=== PATIENT | female | born 1990 | race Two or more races ===

== ENCOUNTER 2019-05-24 09:27 | Emergency (ER) | payer OTHER ==
[~2019-05-24] VITALS: Ht 157.5 cm; Wt 112.5 kg
[2019-05-24 10:13] LABS: Urine Bacteria NONE SEEN /hpf (None Seen); Urine Blood 2+ /uL (Negative); Urine Specific Gravity 1.024 (1.001-1.035); Urine WBC 11 /hpf (0 - 5)
[2019-05-24 10:20] LABS: Basophils # (auto) 0 uL; Basophils % (auto) 0.3 % (0.0-2.0); Eosinophils # (auto) 0.1 uL; Hematocrit 40.2 % (36.0-46.0); Hemoglobin 13.3 g/dL (12.2-16.2); Lymphocytes % (auto) 14.3 % (10.0-50.0); Mean Corpuscular Hemoglobin 28.6 pg (28.0-32.0); Mean Corpuscular Hgb Conc. 33.1 g/dL (32.0-36.0); Mean Corpuscular Volume 86.6 fL (80.0-100.0); Monocytes # (auto) 0.9 uL; Monocytes % (auto) 6.3 % (0.0-12.0); Neutrophils # (auto) 10.8 uL; Neutrophils % (auto) 78.1 % (37.0-80.0); Platelet Count (auto) 345 10^3/uL (140-450); Red Blood Cells 4.64 10^6/uL (4.0-5.20); Red Cell Distribution Width 13.6 % (11.8-14.3); White Blood Cell 13.8 10^3/uL (4.4-10.8)
[2019-05-24 10:33] LABS: Albumin 3.4 g/dL (3.4-5.0); Calcium 8.6 mg/dL (8.5-10.1); Potassium 3.8 mmol/L (3.5-5.1)
[2019-05-24 10:36] LABS: BUN/Creatinine Ratio 9.9
[2019-05-24 10:38] LABS: Bilirubin, Total 0.3 mg/dL (0.2-1.0); Total Protein 8.1 g/dL (6.4-8.2)
[2019-05-24 11:45] VITALS: BP 122/67
[2019-05-24] MEDS ORDERED: ACETAMINOPHEN 500 MG TAB PO ONE (13:15)
[2019-05-25] MEDS ORDERED: PREN-96 PO (17:42)
== END 2019-05-24 13:12 | disposition home or self-care (01) ==
LOC: ER 09:27
DX: O23.41 Unspecified infection of urinary tract in pregnancy, first trimester (principal); Z3A.11 11 weeks gestation of pregnancy
CPT/HCPCS: 36415; 76801; 80053; 81001; 84702; 85025

== ENCOUNTER 2019-05-24 21:13 | Inpatient (IN) | payer OTHER ==
[~2019-05-24] VITALS: Ht 157.5 cm; Wt 115.6 kg
[2019-05-24] MEDS ORDERED: LACTATED RINGER'S 1,000 ML IV SCH ×2 (22:03→22:11)
[2019-05-24] MEDS ORDERED: LACTATED RINGER'S 1,000 ML IV ONE ×2 (22:03→22:11)
[2019-05-24] MEDS ORDERED: ceFAZolin 1GM 2 GM in D5W 5% 100 ML IV ONE ×4 (22:15)
[2019-05-24] MEDS: ceFAZolin 1GM/50ML 50 ML IV SCH ×2 (22:33→23:25)
[2019-05-24] MEDS: ONDANSETRON HCL 4 MG/2 ML VIAL IV PRN (22:34)
[2019-05-24 23:54] LABS: Urine Bacteria NONE SEEN /hpf (None Seen); Urine Blood Negative /uL (Negative); Urine Specific Gravity 1.003 (1.001-1.035); Urine WBC 12 /hpf (0 - 5)
[2019-05-25] MEDS: BUTORPHANOL TARTRATE 2 MG/1 ML VIAL IV PRN ×5 (00:30→20:12)
[2019-05-25] MEDS: ACETAMINOPHEN 325 MG TAB PO PRN ×3 (04:52→18:39)
[2019-05-25] MEDS: ONDANSETRON HCL 4 MG/2 ML VIAL IV PRN ×3 (04:56→20:12)
[2019-05-25] MEDS ORDERED: ceFAZolin 1GM/50ML 50 ML IV SCH ×2 (06:00)
[2019-05-25 06:16] LABS: Basophils # (auto) 0.2 uL; Basophils % (auto) 1.4 % (0.0-2.0); Eosinophils # (auto) 0.1 uL; Eosinophils % (auto) 0.7 % (0.0-7.0); Hematocrit 35.5 % (36.0-46.0); Hemoglobin 12.1 g/dL (12.2-16.2); Lymphocytes % (auto) 14.2 % (10.0-50.0); Mean Corpuscular Volume 85.3 fL (80.0-100.0); Monocytes # (auto) 1.3 uL; Monocytes % (auto) 9.1 % (0.0-12.0); Neutrophils # (auto) 10.4 uL; Neutrophils % (auto) 74.6 % (37.0-80.0); Platelet Count (auto) 282 10^3/uL (140-450); Red Blood Cells 4.16 10^6/uL (4.0-5.20); Red Cell Distribution Width 13.4 % (11.8-14.3)
[2019-05-25 06:30] VITALS: BP 123/74
[2019-05-25] MEDS: ceFAZolin 1GM/50ML 50 ML IV SCH ×3 (07:41→21:58)
--- NOTE | 2019-05-25 07:44 | NUR ---
Dr. Rivera at bedside Updated with patient status, including patient has not passed kidney stone. Patient reports pain 2/10 to right groin. Orders received to cancel GI consult and increase LR to 150 mls/hr. Will continue with POC.
--- NOTE | 2019-05-25 07:50 | NUR ---
Urine strained 600 UO strained for stones, no stones at this time.
[2019-05-25] MEDS: LACTATED RINGER'S 1,000 ML IV SCH ×2 (08:00→18:41)
--- NOTE | 2019-05-25 08:57 | NUR ---
Urine strained 100ML OF LIGHT YELLOW URINE, strained for stones, no stones at this time. Continue with POC.
--- NOTE | 2019-05-25 09:35 | NUR ---
PT TRANSFERRED TO ROOM 8B VIA SLOW, STEADY GAIT, NO S/S OF DISTRESS NOTED AT THIS TIME.
--- NOTE | 2019-05-25 09:39 | NUR ---
PT MEDICATED WITH STADOL 2MG IVP PER ORDERS FOR PAIN TO RLQ RATING 6/10.
--- NOTE | 2019-05-25 12:00 | NUR ---
Urine strained 100ML OF LIGHT YELLOW URINE, strained for stones, no stones at this time. Continue with POC.
--- NOTE | 2019-05-25 12:30 | NUR ---
DR SALAS NOTIFIED AND INFORMED THAT THE L&D UNIT IS FILLING UP, DR BAR STATED TO TRANSFER PT TO [facility] IF NEEDED. ORDERS RECEIVED TO ADMIT PT TO THE UNIT THEN TRANSFER TO [facility] WITH THE SAME ORDERS.
--- NOTE | 2019-05-25 13:00 | NUR ---
PT ADMITTED TO L&D, CONSENT FOR BLOOD TRANSFUSION OBTAINED. PT TO BE TRANSFERRED TO [facility].
--- NOTE | 2019-05-25 14:40 | NUR ---
REPORT CALLED TO GLORIA ARNETT ON [facility], REPORT INCLUDED PT IS A 28 [address] BAR, AT 12 WEEKS GESTATION ADMITTED FOR UTI AND KIDNEY STONE. PT'S CURRENT ORDERS INCLUDE ANCEF 1GM Q 8H, STADOL 2MG IVP Q5H, ZOFRAN 4MG IVP Q4H, FHT VIA DOPPLER QSHIFT, AND REGULAR DIET. SULY ARNETT ALSO INFORMED THAT PT'S URINE IS BEING STRAINED FROM KIDNEY STONES..
--- NOTE | 2019-05-25 15:20 | NUR ---
IV insertion IV access obtained, via clean sterile technique by inserting a 20 gauge catheter at after attempt(s). IV secured properly. No trauma to site. Patient tolerated procedure well.
--- NOTE | 2019-05-25 15:30 | NUR ---
IV removal IV DC'd with sterile technique, catheter fully intact. Pressure dressing applied to site. Patient tolerated procedure well. Discharged with aftercare instructions per MD. NOTE:
--- NOTE | 2019-05-25 15:45 | NUR ---
PT VOIDED 700ML'S, URINE STRAINED, NO STONES NOTED.
[2019-05-25 16:10] VITALS: BP 122/66
--- NOTE | 2019-05-25 16:20 | NUR ---
Opening Note Assumed care of patient, patient is A & O x4, no s/s of distress at this time. Patient received pain medication and anti-nausea medication prior to arrival per MELQUIADES Saleh, her current pain level is tolerable at a 3 on the numeric scale. POC discussed with patient. Patient oriented to room, and hospital visiting hours. Family is at bedside. Bed is in low, locked position, call light in reach. Will continue to monitor Q1h and PRN.
[2019-05-25 17:17] VITALS: BP 122/66
[2019-05-25 17:23] VITALS: BP 122/66
[2019-05-25] MEDS ORDERED: PREN-96 PO (17:42)
--- NOTE | 2019-05-25 19:30 | NUR ---
Opening Shift Note Assumed care of patient, awake and alert. No S/S of distress/SOB or pain. Insructed on POC and to callfor assist PRN, will continue to monitor for changes Q1hr and PRN. Family at bedside. Fall and safety precautions in place. Call light within reach.
[2019-05-25 20:00] VITALS: BP 104/70
--- NOTE | 2019-05-25 20:30 | NUR ---
URINE STRAINING Educated patient on MD's order to strain urine. Patient verbalized understanding and agreement, and returned demonstration. Will continue to monitor
[2019-05-25 22:08] VITALS: BP 104/70
[2019-05-26] VITALS (10 sets, daily range): BP systolic 103–122; BP diastolic 57–79
[2019-05-26] MEDS: LACTATED RINGER'S 1,000 ML IV SCH ×5 (00:30→22:00)
[2019-05-26] MEDS: ONDANSETRON HCL 4 MG/2 ML VIAL IV PRN ×5 (02:20→22:12)
[2019-05-26] MEDS: ACETAMINOPHEN 325 MG TAB PO PRN (02:21)
[2019-05-26] MEDS: ceFAZolin 1GM/50ML 50 ML IV SCH ×3 (05:50→22:13)
--- NOTE | 2019-05-26 07:45 | NUR ---
Opening Note Assumed care of patient. She is A & O x4, patient c/o abdominal pain and nausea. POC discussed with patient. Will medicate per orders. Bed is in low, locked position, call light within reach. Will monitor Q1h and PRN.
[2019-05-26] MEDS: BUTORPHANOL TARTRATE 2 MG/1 ML VIAL IV PRN ×4 (08:24→22:12)
--- NOTE | 2019-05-26 09:20 | NUR ---
Dr. Rivera at bedside Notified Dr. Rivera that patient has only been wanting half of her Stadol dose every four hours, that 2mg is too strong for her. Dr. Rivera said "that is fine." Will medicate as requested.
[2019-05-26 11:03] LABS: Basophils # (auto) 0.1 uL; Basophils % (auto) 0.7 % (0.0-2.0); Eosinophils # (auto) 0.1 uL; Eosinophils % (auto) 0.8 % (0.0-7.0); Hematocrit 32.9 % (36.0-46.0); Lymphocytes # (auto) 1.6 uL; Lymphocytes % (auto) 12.3 % (10.0-50.0); Mean Corpuscular Hemoglobin 29.1 pg (28.0-32.0); Mean Corpuscular Hgb Conc. 33.3 g/dL (32.0-36.0); Mean Corpuscular Volume 87.5 fL (80.0-100.0); Monocytes # (auto) 1.1 uL; Monocytes % (auto) 8.7 % (0.0-12.0); Neutrophils # (auto) 9.9 uL; Neutrophils % (auto) 77.5 % (37.0-80.0); Nucleated Red Blood Cells % 0.1 %; Platelet Count (auto) 272 10^3/uL (140-450); Red Blood Cells 3.76 10^6/uL (4.0-5.20); Red Cell Distribution Width 13.6 % (11.8-14.3); White Blood Cell 12.8 10^3/uL (4.4-10.8)
[2019-05-26 13:33] LABS: Urine Bacteria NONE SEEN /hpf (None Seen); Urine Blood Negative /uL (Negative); Urine WBC 5 /hpf (0 - 5)
--- NOTE | 2019-05-26 19:35 | NUR ---
Opening Shift Note Assumed care of patient, awake and alert x4. Family noted at the bedside. Patient complains of pain to right lower quadrant which radiates to the right lower back (pain scale 6/10), will medicate patient as ordered by MD. Instructed on plan of care and to call for assistance as needed. Bed is locked in lowest position, side rails x 2 are up, and call light is within reach.
--- NOTE | 2019-05-26 20:39 | NUR ---
SPOKE WITH DR. ROMERO RE: STOOL SOFTENER Notified Dr. Romero that per patient her last bowel movement was on 05-24-19 and patient reports that she is feeling distended. Dr. Romero also notified that patient reports that she thinks if she has a bowel movement she will feel a little better. Orders from Dr. Romero received for Colace 100mg PO BID. Order read back and verified. Will carry out order as received.
[2019-05-27] VITALS (7 sets, daily range): BP systolic 105–138; BP diastolic 52–78
[2019-05-27] MEDS: ONDANSETRON HCL 4 MG/2 ML VIAL IV PRN ×5 (03:55→21:02)
[2019-05-27] MEDS: DOCUSATE SOD 100 MG CAP PO SCH ×3 (03:55→21:02)
[2019-05-27] MEDS: ACETAMINOPHEN 325 MG TAB PO PRN ×2 (03:56→09:03)
[2019-05-27] MEDS: LACTATED RINGER'S 1,000 ML IV SCH ×2 (04:13→14:38)
[2019-05-27] MEDS: BUTORPHANOL TARTRATE 2 MG/1 ML VIAL IV PRN (05:48)
[2019-05-27] MEDS: ceFAZolin 1GM/50ML 50 ML IV SCH ×3 (05:49→21:02)
--- NOTE | 2019-05-27 06:50 | NUR ---
URINE STRAINED Urine strained throughout the night. No stones noted in urine.
--- NOTE | 2019-05-27 07:00 | NUR ---
DR. BAR AT THE BEDSIDE Dr. Bar at the bedside discussing plan of care with patient and this RN. Verbal orders received to discontinue Butorphanol and start Tylenol with codeine 1 tablet every four hours as needed for pain. Order read back, repeated, and verified. Will carry out orders as received.
--- NOTE | 2019-05-27 07:40 | NUR ---
Patient went to the bathroom.
--- NOTE | 2019-05-27 09:03 | NUR ---
Patient with facial grimacing noted, stated she's in pain, nauseous. Explained to the patient she has orders for Tylenol w/ Codeine or Tylenol 650 mg for pain. Patient stated she wants Tylenol without Codeine. Zofran IVP given for nausea and Tylenol 650 mg PO given for pain.
--- NOTE | 2019-05-27 09:18 | NUR ---
Patient taken via wheelchair to Radiology for OB Ultrasound. came over.
[2019-05-27] MEDS: ACETAMINOPHEN/CODEINE#3 (300/30mg) TAB PO PRN ×3 (13:05→21:02)
--- NOTE | 2019-05-27 13:05 | NUR ---
Patient stated she's in pain, requested for Tylenol #3 w/ Codeine PO, also stated she's nauseous. Zofran Inj given for nausea, Tylenol w/ Codeine given for pain.
--- NOTE | 2019-05-27 14:45 | NUR ---
Strained the urine. No stones.
--- NOTE | 2019-05-27 15:00 | NUR ---
Bedside commode provided.
--- NOTE | 2019-05-27 17:04 | NUR ---
Patient stated she's in pain, nauseous. Tylenol #3 w/Codeine given for pain, Zofran IVP given for nausea. and two female visitors at bedside.
--- NOTE | 2019-05-27 18:40 | NUR ---
Patient walking on the hallway with .
--- NOTE | 2019-05-27 19:10 | NUR ---
Called L&D regarding order to obtain heart tone daily. Spoke with Charge Nurse Erlinda. Erlinda said an L&D Nurse will come over to check the heart tone.
--- NOTE | 2019-05-27 20:09 | NUR ---
Opening Shift Note Assumed care of patient, awake and alert. No S/S of distress/SOB or pain. Instructed on POC and to call for assist PRN, will continue to monitor for changes Q1hr and PRN.
[2019-05-28] VITALS (11 sets, daily range): BP systolic 112–138; BP diastolic 61–78
[2019-05-28] MEDS: ACETAMINOPHEN/CODEINE#3 (300/30mg) TAB PO PRN ×6 (00:50→21:14)
[2019-05-28] MEDS: ONDANSETRON HCL 4 MG/2 ML VIAL IV PRN ×6 (00:50→21:14)
[2019-05-28] MEDS: LACTATED RINGER'S 1,000 ML IV SCH ×5 (00:51→23:56)
--- NOTE | 2019-05-28 01:31 | NUR ---
heart tones This RN up to patient room to assess heart tones, noted 165 by doppler for 10 seconds. Per pt, FHR is typically between 165 and 180 on doppler and ultrasound.
[2019-05-28] MEDS: ceFAZolin 1GM/50ML 50 ML IV SCH ×3 (05:03→21:14)
[2019-05-28 06:37] LABS: Potassium 3.8 mmol/L (3.5-5.1)
[2019-05-28 06:43] LABS: Albumin 2.7 g/dL (3.4-5.0); BUN/Creatinine Ratio 4.2; Bilirubin, Total 0.6 mg/dL (0.2-1.0); Calcium 8.6 mg/dL (8.5-10.1); Total Protein 6.9 g/dL (6.4-8.2)
--- NOTE | 2019-05-28 07:20 | NUR ---
Report given to Ema Izaguirre, patient is resting no respiratory distress.
--- NOTE | 2019-05-28 08:05 | NUR ---
Patient asked for nausea medication. Zofran Inj not due at this time.
--- NOTE | 2019-05-28 09:18 | NUR ---
L&D MELQUIADES Brown at bedside to assess Heart Tone.
--- NOTE | 2019-05-28 09:24 | NUR ---
L&D MELQUIADES Brown said she could not get Heart Tone.
--- NOTE | 2019-05-28 09:25 | NUR ---
L&D MELQUIADES Brown called MELQUIADES Hunt to reassess the Heart Tone.
[2019-05-28] MEDS: DOCUSATE SOD 100 MG CAP PO SCH ×2 (09:32→21:14)
--- NOTE | 2019-05-28 09:33 | NUR ---
Patient stated she's nauseous, her pain level at 6/10 at this time, requested Tylenol w/Codeine. Zofran IVP given for nausea, Tylenol w/ Codeine given for pain. at bedside.
--- NOTE | 2019-05-28 09:55 | NUR ---
PT has been repositioned and several attempts with doppler to obtain FHT via doppler by Mirna Garcia. Informed RN caring for PT to get an OB limited to scan for FHT.
--- NOTE | 2019-05-28 09:55 | NUR ---
L&D MELQUIADES Hunt said she could not get the Heart Tone as well, may order per protocol OB Sono Ultrasound.
--- NOTE | 2019-05-28 10:05 | NUR ---
Called Ultrasound for OB Sono US.
--- NOTE | 2019-05-28 10:50 | NUR ---
Ultrasound OB resulted.
--- NOTE | 2019-05-28 13:35 | NUR ---
Patient is crying, stated she's in pain, nauseous. Zofran Inj given for nausea, Tylenol w/Codeine given for pain.
--- NOTE | 2019-05-28 17:45 | NUR ---
Patient in bed, crying, stated she's in pain, nauseous. Tylenol #3 w/ Codeine given for pain, Zofran Inj given for nausea. at bedside.
--- NOTE | 2019-05-28 19:29 | NUR ---
191 Heart Tones range 151-154 x 1 minute. Hand Held Doppler used for assessment.
--- NOTE | 2019-05-28 20:02 | NUR ---
Opening Shift Note Assumed care of patient, awake and alert. No S/S of distress/SOB c/o renal pain. Instructed on POC and to call for assist PRN, will continue to monitor for changes Q1hr and PRN.Labor and delivery R.brian Said heart tone of the baby is bet.152-154.Not yet time for the pain med.
[2019-05-29] VITALS (8 sets, daily range): BP systolic 113–125; BP diastolic 60–75
[2019-05-29] MEDS: ONDANSETRON HCL 4 MG/2 ML VIAL IV PRN ×6 (02:07→22:41)
[2019-05-29] MEDS: ACETAMINOPHEN/CODEINE#3 (300/30mg) TAB PO PRN ×6 (02:07→22:46)
--- NOTE | 2019-05-29 04:30 | NUR ---
IV removal IV DC'd with sterile technique, catheter fully intact. Pressure dressing applied to site. Patient tolerated procedure well. NOTE: 3rd day of the i.v.line.
--- NOTE | 2019-05-29 04:30 | NUR ---
IV insertion IV access obtained, via clean sterile technique by inserting 22 gauge catheter at right forearm after attempt by Ema Barnett. IV secured properly. No trauma to site. Patient tolerated well.
[2019-05-29] MEDS: ceFAZolin 1GM/50ML 50 ML IV SCH ×3 (05:31→22:41)
[2019-05-29] MEDS: LACTATED RINGER'S 1,000 ML IV SCH ×3 (06:05→19:01)
--- NOTE | 2019-05-29 07:33 | NUR ---
Report given to Ema Izaguirre, patient is resting no distress.
--- NOTE | 2019-05-29 09:08 | NUR ---
Dr. Rivera came over. made aware patient still complaining of pain to pass kidney stones, and constipated.
--- NOTE | 2019-05-29 09:10 | NUR ---
Dr. Rivera at bedside for follow up OB Gyne Consult. MD ordered Urology Consult, Dulcolax 10 mg PRN Daily for constipation.
[2019-05-29] MEDS ORDERED: BISACODYL 5 MG EC TAB PO PRN (09:15)
[2019-05-29] MEDS: DOCUSATE SOD 100 MG CAP PO SCH ×2 (09:34→22:00)
--- NOTE | 2019-05-29 10:02 | NUR ---
Dulcolax PO given for constipation as ordered.
--- NOTE | 2019-05-29 10:02 | NUR ---
Patient stated her pain level at 6/10 at this time, nauseous, requested Tylenol w/Codeine for pain. Zofran Inj given for nausea, Tylenol w/Codeine given for pain as ordered.
--- NOTE | 2019-05-29 10:15 | NUR ---
Unit Sec. Loera said Dr. Gross called back regarding the Urology Consult but the MD did not say if he will see the patient today.
--- NOTE | 2019-05-29 14:00 | NUR ---
Called Dr. Rivera regarding the final results of Urine Bacterial Culture. ordered repeat Urine Bacterial Culture. Dr. Rivera also ordered to follow up with Urology because patient is in a lot of pain.
--- NOTE | 2019-05-29 14:12 | NUR ---
Called Dr. Gross. Phone on [employer]. Left a message to call back regarding Urology Consult.
--- NOTE | 2019-05-29 14:36 | NUR ---
Urine specimen sent to Laboratory.
--- NOTE | 2019-05-29 15:31 | NUR ---
Dr. Gross came over for Urology Consult. Patient is admitted for Renal Stones, 14 weeks .
--- NOTE | 2019-05-29 15:41 | NUR ---
Dr. Gross at bedside. ordered Ultrasound of the Kidney and Bladder. Dr. Gross ordered to call Dr. Rivera if okay to give Toradol Inj for pain.
--- NOTE | 2019-05-29 15:50 | NUR ---
Called Dr. Rivera that patient was seen by Dr. Gross for Urology Consult, if patient is okay to have Toradol Inj for pain. Dr. Rivera said No. Informed Dr. Gross.
--- NOTE | 2019-05-29 15:55 | NUR ---
Patient stated she had a small bowel movement today. Patient had prune juice brought by family.
--- NOTE | 2019-05-29 15:55 | NUR ---
Called Ultrasound that patient has ordered for Kidney and Bladder US as ordered by Dr. Gross. Jewell said call Ultrasound when patient got a full bladder. Informed the patient to press the call light when she has the urge to urinate, hold her bladder for the Ultrasound.
--- NOTE | 2019-05-29 17:10 | NUR ---
Patient came out of the bathroom, stool smear noted on the toilet bowl. Patient stated she has the urge to have bowel movement. Instructions given again to patient if she has the urge to urinate, hold her bladder and press the call light so I could call ultrasound. Patient verbalized understanding.
--- NOTE | 2019-05-29 17:50 | NUR ---
RN AT PT BEDSIDE ROOM 271B FOR FHT VIA DOPPLER. PT HAS BEEN REPOSITIONED SEVERAL TIMES AND SEVERAL ATTEMPTS MADE WITH DOPPLER TO OBTAIN FHT VIA DOPPLER BY Alise NIEVES. INFORMED NITIN ARNETT TO GET AN OB LIMITED SCAN FOR FHT.
--- NOTE | 2019-05-29 18:00 | NUR ---
L&D MELQUIADES Coffey unable to assess heart tone. Protocol order OB Sono US for viability as per Dr. Rivera.
--- NOTE | 2019-05-29 18:18 | NUR ---
Called Ultrasound. Phone on voicemail. Left a message regarding Stat OB Ultrasound.
[2019-05-30] VITALS (9 sets, daily range): BP systolic 101–121; BP diastolic 56–75
[2019-05-30] MEDS: LACTATED RINGER'S 1,000 ML IV SCH ×4 (02:05→22:05)
[2019-05-30] MEDS: ONDANSETRON HCL 4 MG/2 ML VIAL IV PRN ×2 (05:17→09:26)
[2019-05-30] MEDS: ceFAZolin 1GM/50ML 50 ML IV SCH ×3 (05:18→22:00)
[2019-05-30] MEDS: ACETAMINOPHEN/CODEINE#3 (300/30mg) TAB PO PRN ×3 (05:19→14:12)
--- NOTE | 2019-05-30 09:25 | NUR ---
Patient with facial grimacing noted, stated her pain level at 6/10 at this time, nauseous, requested Tylenol w/Codeine. Zofran Inj given for nausea, Tylenol w/ Codeine given for pain as ordered.
--- NOTE | 2019-05-30 09:30 | NUR ---
Patient refused Colace, stated she had a lot of bowel movement last night.
[2019-05-30] MEDS: DOCUSATE SOD 100 MG CAP PO SCH ×2 (09:32→22:00)
--- NOTE | 2019-05-30 09:44 | NUR ---
FHT THIS RN AT BEDSIDE ROOM 271B FOR FHT VIA DOPPLER. PT REPOSITIONED TO OBTAIN FHT VIA DOPPLER. UNABLE TO OBTAIN FHT AT THIS TIME INFORMED NITIN RN TO GET AN OB LIMITED SCAN FOR FHT. VERBALIZED UNDERSTANDING.
--- NOTE | 2019-05-30 09:45 | NUR ---
Vipul&Rancho Kang at bedside, unable to assess the heart tone. Protocol order for OB Ultrasound as per Dr. Rivera.
--- NOTE | 2019-05-30 14:12 | NUR ---
Patient stated her pain level at 6/10 at this time, requested for Tylenol w/ Codeine. Tylenol w/ Codeine given as ordered.
--- NOTE | 2019-05-30 14:17 | NUR ---
Three female visitors came over. at bedside.
--- NOTE | 2019-05-30 14:24 | NUR ---
Dr. Gross at bedside. explained the Renal US results. informed the patient there will be another Urologist to see her tomorrow. and visitors at bedside.
--- NOTE | 2019-05-30 14:24 | NUR ---
Patient stated to Dr. Gross that regular Tylenol does not relieve her pain. Patient has orders for Tylenol #3 w/ Codeine as per Dr. Rivera.
--- NOTE | 2019-05-30 19:32 | NUR ---
Opening Shift Note Assumed care of patient, awake and alert. at bed side. Patient verbalizes pain described as flank pain, rating it as a 7/10. Patient requests pain med, will give med as ordered. Instructed on POC and to call for assist PRN, will continue to monitor for changes Q1hr and PRN.
--- NOTE | 2019-05-30 20:52 | NUR ---
DR CORTES AT BED SIDE
--- NOTE | 2019-05-30 20:52 | NUR ---
CHARISMA RN AT BED SIDE FOR FHR MONITORING
--- NOTE | 2019-05-30 21:00 | NUR ---
DR. BAR AT PT. BEDSIDE FOR ROUNDS, FHT, VIA HAND HELD DOPPLER FOUND IN LOWER RIGHT PELVIC AREA, ARE AT 152.
[2019-05-30 23:28] LABS: Albumin 2.8 g/dL (3.4-5.0); Calcium 8.4 mg/dL (8.5-10.1); Potassium 3.9 mmol/L (3.5-5.1)
[2019-05-30 23:30] LABS: BUN/Creatinine Ratio 5.2
[2019-05-30 23:33] LABS: Bilirubin, Total 0.3 mg/dL (0.2-1.0); Total Protein 7.1 g/dL (6.4-8.2)
[2019-05-31] VITALS: BP 126/66
[2019-05-31 04:08] VITALS: BP 122/64
[2019-05-31] MEDS: LACTATED RINGER'S 1,000 ML IV SCH ×3 (04:32→18:05)
[2019-05-31] MEDS: ACETAMINOPHEN/CODEINE#3 (300/30mg) TAB PO PRN ×3 (05:35→21:04)
[2019-05-31] MEDS: ceFAZolin 1GM/50ML 50 ML IV SCH ×2 (06:00→14:45)
--- NOTE | 2019-05-31 07:30 | NUR ---
heart tones were not obtained, Nurse Zina RN made aware for US needs to be ordered.
[2019-05-31 08:05] VITALS: BP 108/50
--- NOTE | 2019-05-31 09:09 | NUR ---
Jessica from Ultrasound cancelled the OB US to assess heart tone.
--- NOTE | 2019-05-31 09:10 | NUR ---
Called Ultrasound, phone on voicemail, left a message to call back.
[2019-05-31] MEDS: DOCUSATE SOD 100 MG CAP PO SCH ×2 (10:00→22:00)
--- NOTE | 2019-05-31 10:00 | NUR ---
Called Ultrasound. Spoke with Jessica regarding the OB Ultrasound, the L&D Nurse Nurse unable to obtain Heart Tone so the OB USD was ordered by Dr. Rivera. Jessica said the L&D is using an old machine, that OB US has to be done daily with the same results, and said I have to talk to my Charge Nurse.
--- NOTE | 2019-05-31 10:02 | NUR ---
Charge Nurse Haleigh made aware Jessica cancelled the OB US. L&D Nurse unable to obtain FHTs.
--- NOTE | 2019-05-31 10:05 | NUR ---
Called Dr. Rivera, left a message to call back. Waiting for MD to call back.
--- NOTE | 2019-05-31 10:28 | NUR ---
Patient asleep at this time, no acute distress noted.
--- NOTE | 2019-05-31 11:16 | NUR ---
Patient stated her pain level at 6/10 at this time, refused regular Tylenol. Tylenol #3 w/ Codeine given for pain as ordered.
[2019-05-31 12:00] VITALS: BP 129/78
--- NOTE | 2019-05-31 12:12 | NUR ---
Pharmacist called that Ancef is discontinued as per Pharmacy Protocol because Urine Bacterial Culture (-), no growth.
--- NOTE | 2019-05-31 13:37 | NUR ---
Called Pharmacy again to clarify if Ancef is going to be discontinued. Pharmacist said wait for the doctor to discontinue the Ancef.
[2019-05-31 16:00] VITALS: BP 114/74
--- NOTE | 2019-05-31 17:55 | NUR ---
Dr. Rivera at bedside. MD ordered to discontinue Ancef IV, patient for possible discharge tomorrow.
--- NOTE | 2019-05-31 18:25 | NUR ---
heart tones obtained via Doppler 140's
--- NOTE | 2019-05-31 19:15 | NUR ---
Opening Shift Note Received report from Zina ARNETT. Assumed care of patient, awake and alert. No S/S of distress/SOB, with moderate R quadrant abdominal pain. Instructed on POC and to call for assist PRN, will continue to monitor for changes Q1hr and PRN.
[2019-05-31 21:45] VITALS: BP 138/77
[2019-06-01] VITALS (7 sets, daily range): BP systolic 105–160; BP diastolic 62–88
[2019-06-01] MEDS: LACTATED RINGER'S 1,000 ML IV SCH ×4 (00:46→21:30)
--- NOTE | 2019-06-01 06:51 | NUR ---
Patient's mother called and asked why her daughter still having headache and would like to have an explanation from the doctor. Addendum: 06/01/19 at 0654 by John Boggs RN Wrong entry.
--- NOTE | 2019-06-01 07:20 | NUR ---
Opening Shift Note Report received and assumed care of patient, awake and alert. No c/o pain or discomfort at this time . Instructed on POC and Nursing routines,call light within reach patient reminded instructed to call for assistance,patient verbalized understanding. will continue to monitor for changes Q1hr and PRN.
[2019-06-01] MEDS: DOCUSATE SOD 100 MG CAP PO SCH ×2 (09:43→22:00)
--- NOTE | 2019-06-01 09:55 | NUR ---
heart tones obtained via Doppler 140's
--- NOTE | 2019-06-01 13:30 | NUR ---
PATIENT AMBULATING IN HALLWAY WITH
--- NOTE | 2019-06-01 15:50 | NUR ---
MD VISIT HERE TO SEE AND EXAMINED PATIENT,PLAN OF CARE AND DISCHARGED PLAN IN A.M. DISCUSSED ,PATIENT MADE DR. BAR AWARE OF RASHES UNDER BILATERAL BREAST.RECEIVED ORDER,SEE WRITTEN ORDER.
--- NOTE | 2019-06-01 17:30 | NUR ---
RESTING NO DISTRESS NO DISCOMFORT OR PAIN
[2019-06-01] MEDS ORDERED: VITAMINS A & D (TOPICAL) OINT 5GM TOP PRN (18:00)
--- NOTE | 2019-06-01 19:10 | NUR ---
Opening Shift Note Received report from Alivia ARNETT. Assumed care of patient, awake and alert, family at bedside. No S/S of distress/SOB or pain. Instructed on POC and to call for assist PRN, will continue to monitor for changes Q1hr and PRN.
[2019-06-02] VITALS (8 sets, daily range): BP systolic 107–109; BP diastolic 64–74
[2019-06-02] MEDS: LACTATED RINGER'S 1,000 ML IV SCH ×2 (04:00→11:27)
--- NOTE | 2019-06-02 08:00 | NUR ---
Opening Shift Note Assumed care of patient, awake and alert. No S/S of distress/SOB or pain. Patient is at 14 weeks of . Instructed on POC and to call for assist PRN, will continue to monitor for changes Q1hr and PRN.
--- NOTE | 2019-06-02 09:12 | NUR ---
assessment No post discharge needs identified. Addendum: 06/03/19 at 912 by Mihaela VAUGHN Amended: Links added.
[2019-06-02] MEDS: DOCUSATE SOD 100 MG CAP PO SCH (10:00)
--- NOTE | 2019-06-02 10:30 | NUR ---
L/D RN at BS, heart tones obtained via doppler, fhts =142-148 BPM x 2 minutes.
--- NOTE | 2019-06-02 16:00 | NUR ---
Discharge instructions given as ordered. Encourage to follow up with OB/GYNE Dr. Rivera on 06/07/19 at 2:30pm at the office as instructed. All questions and concerns addressed. Patient verbalized understanding. Medication reconciliation form completed and copy given to patient. IV removed with catheter intact, pressure dressing applied. Patient taken to vehicle via wheelchair with all personal belongings, accompanied by staff and family member. No distress noted at time of departure.
== END 2019-06-02 16:00 | disposition home or self-care (01) | DRG 832 ==
LOC: LDRP 21:13 → OBSVTOIN 21:13 → LDRP 22:22 → INTOOBSV 05-25 12:30 → OBSVTOIN 05-25 12:30 → WEST WING 05-25 16:19 → LDRP 05-25 16:19 → WEST WING 05-28 15:01
PROVIDERS: ADMIT Obstetrics & Gynecology; ATTEND Obstetrics & Gynecology
DX: O26.831 Pregnancy related renal disease, first trimester (principal); O23.41 Unspecified infection of urinary tract in pregnancy, first trimester; N20.0 Calculus of kidney; Z3A.11 11 weeks gestation of pregnancy
CPT/HCPCS: 36415; 76775; 76805; 76815; 80053; 81001; 81002; 85025; 87086; 87210; 96361; 96372; 96374; G0378; J0690; J2405; J7060

== ENCOUNTER 2019-08-28 08:50 | Observation (INO) | payer OTHER ==
[~2019-08-28 08:50] MED LIST: PREN-96 PO
[2019-08-28 09:55] LABS: Urine Bacteria FEW /hpf (None Seen); Urine Blood TRACE /uL (Negative); Urine Mucus FEW (None Seen); Urine Specific Gravity 1.013 (1.001-1.035); Urine WBC 31 /hpf (0 - 5)
[2019-08-28] MEDS ORDERED: LACTATED RINGER'S 2,000 ML IV ONE (10:00)
[2019-08-28] MEDS ORDERED: ceFAZolin 1GM/50ML 50 ML IV ONE (10:00)
== END 2019-08-28 12:40 | disposition home or self-care (01) | DRG 833 ==
LOC: LDRP 08:50
PROVIDERS: ADMIT Obstetrics & Gynecology; ATTEND Obstetrics & Gynecology
DX: O21.2 Late vomiting of pregnancy (principal); O26.892 Other specified pregnancy related conditions, second trimester; E86.0 Dehydration; R42 Dizziness and giddiness; H53.8 Other visual disturbances; Z3A.24 24 weeks gestation of pregnancy
CPT/HCPCS: 59025; 81001; 81002; 94760; 96361; 96365; G0378; J0690

== ENCOUNTER 2019-10-09 12:48 | Observation (INO) | payer OTHER ==
[2019-10-09 13:59] LABS: Urine Bacteria FEW /hpf (None Seen); Urine Blood TRACE /uL (Negative); Urine Specific Gravity 1.013 (1.001-1.035); Urine WBC 26 /hpf (0 - 5)
== END 2019-10-09 13:50 | disposition home or self-care (01) | DRG 833 ==
LOC: LDRP 12:48
PROVIDERS: ADMIT Specialist; ATTEND Specialist
DX: O62.9 Abnormality of forces of labor, unspecified (principal); Z3A.33 33 weeks gestation of pregnancy
CPT/HCPCS: 59025; 81001; 81002; G0378

== ENCOUNTER 2019-11-12 02:36 | Inpatient (IN) | payer OTHER ==
[~2019-11-12] VITALS: Ht 157.5 cm; Wt 111.1 kg
[2019-11-12] MEDS ORDERED: VENL37.572 PO (04:12)
[2019-11-12] MEDS ORDERED: LACT. RINGERS/OXYTOCIN 20UNITS 1,000 ML IV SCH (04:38)
[2019-11-12] MEDS ORDERED: BUTORPHANOL TARTRATE 2 MG/1 ML VIAL IV PRN (04:45)
[2019-11-12] MEDS ORDERED: LIDOCAINE 2%HCL (LOCAL ANESTH.) INJ 20ML MDV ID ONE (04:45)
[2019-11-12] MEDS ORDERED: DERMOPLAST 60ML BOTTLE TOP PRN (04:45)
[2019-11-12] MEDS ORDERED: METHYLERGONOVINE MALEATE 0.2 MG/ML AMP IM PRN (04:45)
[2019-11-12] MEDS ORDERED: CARBOPROST TROMETHAMINE 250 MCG/1ML VIAL IM PRN (04:45)
[2019-11-12] MEDS ORDERED: PHISODERM TOP SOLN 240ML BTL TOP PRN (04:45)
[2019-11-12] MEDS ORDERED: WITCH HAZEL-GLYCERIN PAD TOP PRN (04:45)
[2019-11-12 05:21] LABS: Basophils # (auto) 0.1 10 ^3/uL (0-0.2); Eosinophils % (auto) 0.3 % (0.0-7.0); Hemoglobin 12.2 g/dL (12.2-16.2); Mean Corpuscular Hemoglobin 25.2 pg (28.0-32.0); Neutrophils # (auto) 11.2 10 ^3/uL (1.6-8.6); Nucleated Red Blood Cells % 0.1 %; Red Blood Cells 4.83 10^6/uL (4.0-5.20); White Blood Cell 14.7 10^3/uL (4.4-10.8)
[2019-11-12 05:23] LABS: Basophils % (auto) 0.6 % (0.0-2.0); Eosinophils # (auto) 0 10 ^3/uL (0-0.8); Hematocrit 37.3 % (36.0-46.0); Lymphocytes # (auto) 2.4 10 ^3/uL (0.4-5.4); Lymphocytes % (auto) 16.1 % (10.0-50.0); Mean Corpuscular Hgb Conc. 32.7 g/dL (32.0-36.0); Mean Corpuscular Volume 77.2 fL (80.0-100.0); Monocytes # (auto) 1.1 10 ^3/uL (0-1.3); Monocytes % (auto) 7.2 % (0.0-12.0); Neutrophils % (auto) 75.8 % (37.0-80.0); Platelet Count (auto) 329 10^3/uL (140-450); Red Cell Distribution Width 16.1 % (11.8-14.3)
[2019-11-12 05:27] LABS: Urine Bacteria FEW /hpf (None Seen); Urine Blood 1+ /uL (Negative); Urine Specific Gravity 1.011 (1.001-1.035); Urine WBC 28 /hpf (0 - 5)
[2019-11-12 05:36] LABS: INR 0.94 (0.9-1.15); Partial Thromboplastin Time 27.3 sec (23.64-32.05)
[2019-11-12 05:41] LABS: Albumin 2.3 g/dL (3.4-5.0); Calcium 8.3 mg/dL (8.5-10.1); Potassium 4.2 mmol/L (3.5-5.1)
[2019-11-12 05:46] LABS: BUN/Creatinine Ratio 9.2; Bilirubin, Total 0.2 mg/dL (0.2-1.0); Total Protein 7.2 g/dL (6.4-8.2)
[2019-11-12] MEDS ORDERED: LACTATED RINGER'S 1,000 ML IV ONE (08:07)
[2019-11-12] MEDS ORDERED: fentaNYL CITRATE 100 MCG/2 ML VL IV ONE (08:15)
[2019-11-12] MEDS ORDERED: NALOXONE HCL 0.4 MG/ML VIAL IV ONE (08:15)
[2019-11-12] MEDS ORDERED: ePHEDrine SULFATE 50 MG/ML AMP IV ONE (08:15)
[2019-11-12] MEDS ORDERED: fentaNYL 200mCg/100ml W ROPIVA 100 ML EPI SCH (08:15)
[2019-11-12] MEDS ORDERED: LIDOCAINE HCL 2 %PF INJ 10ML AMP IJ ONE (08:15)
[2019-11-12] MEDS: miSOPROStol 50 MCG per PRE-CUT 1/2 TAB PO PRN ×2 (08:44→15:20)
[2019-11-12] MEDS: LACTATED RINGER'S 1,000 ML IV SCH (11:23)
[2019-11-12] MEDS ORDERED: LORazepam 2MG/ML-1ML VIAL IV ONE (12:15)
[2019-11-12] MEDS: ceFAZolin 1GM/50ML 50 ML IV SCH (18:47)
[2019-11-12] MEDS: fentaNYL 200mCg/100ml W ROPIVA 100 ML EPI SCH (21:15)
[2019-11-12] MEDS ORDERED: D5W/LACTATED RINGERS 1,000 ML IV SCH (23:00)
[2019-11-13] VITALS (10 sets, daily range): BP systolic 117–142; BP diastolic 63–90
[2019-11-13] MEDS: LACTATED RINGER'S 1,000 ML IV SCH (01:20)
[2019-11-13] MEDS: ceFAZolin 1GM/50ML 50 ML IV SCH ×2 (02:30→18:20)
[2019-11-13] MEDS: fentaNYL 200mCg/100ml W ROPIVA 100 ML EPI SCH (03:58)
[2019-11-13 07:06] LABS: RPR Non Reactive (Non Reactive)
[2019-11-13] MEDS ORDERED: SUCCINYLCHOLINE CHLORIDE 20 MG/ML 10ML VIAL IV ONE (09:40)
[2019-11-13] MEDS ORDERED: ROCURONIUM 10MG/ML 10ML VIAL IV ONE (09:42)
[2019-11-13] MEDS ORDERED: fentaNYL CITRATE 100 MCG/2 ML VL ONE (09:42)
[2019-11-13] MEDS ORDERED: MIDAZOLAM HCL 1MG/1ML-2 ML VIAL ONE (10:34)
[2019-11-13] MEDS ORDERED: GLYCOPYRROLATE 0.2 MG/ML 1ML VIAL ONE (10:48)
[2019-11-13] MEDS ORDERED: oxyTOCIN 10 UNIT/ML 10ML VIAL ONE (10:48)
[2019-11-13] MEDS ORDERED: NEOSTIGMINE 1 MG/ML INJ (10mg/10ML VIAL) ONE (10:48)
[2019-11-13] MEDS ORDERED: METOCLOPRAMIDE HCL 5MG/ml INJ 2ml VIAL ONE (10:50)
[2019-11-13] MEDS ORDERED: PROPOFOL 10 MG/ML 20 ML IV ONE (10:50)
[2019-11-13] MEDS ORDERED: ONDANSETRON HCL 4 MG/2 ML VIAL ONE (10:50)
[2019-11-13] MEDS ORDERED: LACTATED RINGER'S 1,000 ML IV SCH (10:56)
[2019-11-13] MEDS ORDERED: ceFAZolin 1GM/50ML 50 ML IV SCH (11:00)
[2019-11-13] MEDS ORDERED: ACETAMINOPHEN IV 1000 MG/100ML (10MG/ML) IV PRN ×2 (11:00→22:00)
--- NOTE | 2019-11-13 11:25 | NUR ---
Report received from PACU Report received from Roby, SEXUAL ASSAULT COUNSELOR including pt A/Ox 4, BPP 134/82, RR 22, HR 96, SaO2 36% on RA. Dressing to lower abdominal incision C/D/I, fundus firm 1 below umbilicus, bleeding scant, abdominal binder applied. Pt received 2g Ancef at 1015, Pt on second bag of LR with 30 units pitocin, 500ml clear, yellow urine out. Per Roby, pt to be brought to unit shortly.
--- NOTE | 2019-11-13 11:40 | NUR ---
Post Op for LDRP: Received patient from PACU via bed to room 7A. Patient A/A/Ox4, abdominal binder and bilateral SCD's are in place, IV fluids placed on pump and infusing per order, incisional site dressing clean/dry/intact and Richards Catheter to gravity draining clear yellow urine. Incentive Spirometer at bedside and instruction on proper use with return demonstration done by patient. PT states she is in pain, does not want anyone else in room until pain medication administered, does not wish to see at this time.
--- NOTE | 2019-11-13 11:40 | NUR ---
Dressing to lower abdominal incision clean, dry and intact. Addendum: 11/13/19 at 1715 by Gloria Torres RN Amended: Links added.
[2019-11-13] MEDS: HYDROmorphone HCL 2 MG/ML VL IV PRN ×3 (12:04→20:13)
[2019-11-13] MEDS ORDERED: ACETAMINOPHEN IV 1000 MG/100ML (10MG/ML) IV ONE (12:45)
--- NOTE | 2019-11-13 18:45 | NUR ---
Teaching: Reviewed information in [employer] booklet with patient. Discussed benefits of and risks associated with not . Discussed different positions, proper latch, feeding cues, and baby-led . Provided information of medication side effects related to . All questions and concerns addressed at this time. Patient verbalized understanding of information.
--- NOTE | 2019-11-13 19:00 | NUR ---
Patient very anxious for fundus assessment, history of anxiety. Attempted to do fundal rub/ massage, patient request for only 5 seconds and soft educated patient on reason for assessment. This RN begins to massage fundus patient request for this RN to stop. Despite educations patient continues to refuse. Fundus felt 1 below U with scant bleeding.
[2019-11-13] MEDS ORDERED: LORazepam 2MG/ML-1ML VIAL IV ONE (19:45)
--- NOTE | 2019-11-13 19:45 | NUR ---
Bottle-feeding Education: Patient encouraged to breastfeed. Benefits of and the risk of providing formula to was discussed. Patient verbalized understanding of the benefits and is aware of risk and insists on bottle-feeding. Formula provided and instruction on formula preperation from the [employer] booklet reviewed with patient.
[2019-11-14] MEDS: HYDROmorphone HCL 2 MG/ML VL IV PRN ×2 (00:05→05:11)
[2019-11-14] MEDS ORDERED: ONDANSETRON HCL 4 MG/2 ML VIAL IV PRN (01:15)
[2019-11-14] MEDS ORDERED: diphenhdrAMINE HCL 50 MG/1 ML VL IV PRN (01:15)
[2019-11-14] MEDS ORDERED: ACETAMINOPHEN IV 1000 MG/100ML (10MG/ML) IV PRN (01:30)
--- NOTE | 2019-11-14 01:58 | NUR ---
Richards catheter dc'd Order to discontinue Richards catheter. Richards dc'd with clean technique following deflation of balloon 10ml of fluid out. Patient tolerated well with no complaints of pain. Continue care.
--- NOTE | 2019-11-14 02:20 | NUR ---
Lower abdominal dressing removed, incision well approximated with gabriel intact, no redness, bruising, bleeding, or drainage noted. Incentive spirometer at bedside. Pt educated on use of IS and importance of ambulation. Pt verbalized understanding of teaching.
--- NOTE | 2019-11-14 02:30 | NUR ---
Ambulation: Medicated for pain, patient refused Ativan for anxiety at this time. Patient OOB with standby assistance by RN. Patient transferred to chair next to bed with steady gait. Clean gown provided and bed linen changed. Patient back to bed with steady gait and no distress noted.
[2019-11-14 03:00] VITALS: BP 134/81
[2019-11-14] MEDS: ceFAZolin 1GM/50ML 50 ML IV SCH (04:02)
[2019-11-14 06:49] LABS: Basophils # (auto) 0.1 10 ^3/uL (0-0.2); Hemoglobin 10.3 g/dL (12.2-16.2); Lymphocytes # (auto) 1.9 10 ^3/uL (0.4-5.4); Mean Corpuscular Hgb Conc. 32.3 g/dL (32.0-36.0)
[2019-11-14 06:50] LABS: Basophils % (auto) 0.5 % (0.0-2.0); Eosinophils # (auto) 0.1 10 ^3/uL (0-0.8); Eosinophils % (auto) 0.4 % (0.0-7.0); Lymphocytes % (auto) 13.9 % (10.0-50.0); Mean Corpuscular Hemoglobin 25.2 pg (28.0-32.0); Mean Corpuscular Volume 77.9 fL (80.0-100.0); Monocytes # (auto) 1.4 10 ^3/uL (0-1.3); Neutrophils # (auto) 10.3 10 ^3/uL (1.6-8.6); Neutrophils % (auto) 75.2 % (37.0-80.0); Nucleated Red Blood Cells % 0.1 %; Platelet Count (auto) 262 10^3/uL (140-450); Red Blood Cells 4.11 10^6/uL (4.0-5.20); White Blood Cell 13.6 10^3/uL (4.4-10.8)
[2019-11-14 07:20] VITALS: BP 140/81
--- NOTE | 2019-11-14 08:00 | NUR ---
DR SALAS MADE AWARE OF PT IV LEAKING AND PATIENT HAS ONE ANTIBIOTIC AWAITING. PER DR SALAS LEAVE IV OUT, AND DISCONTINUE ANTIBIOTICS, ORDERS INTO BE IMPLEMENTATION.
[2019-11-14] MEDS ORDERED: LACTATED RINGER'S 1,000 ML IV SCH (08:26)
[2019-11-14] MEDS ORDERED: HYDROcodone-ACET 5/325MG TAB PO PRN ×2 (08:30)
[2019-11-14] MEDS ORDERED: BISACODYL 10 MG RECT SUPP PR PRN (08:30)
[2019-11-14] MEDS: DOCUSATE SOD 100 MG CAP PO SCH ×2 (08:43→21:03)
[2019-11-14] MEDS: VENLAFAXINE HCL 25MG TABLET PO SCH ×3 (08:43→21:03)
[2019-11-14] MEDS ORDERED: DOCUSATE CALCIUM 240 MG CAP PO SCH (10:00)
[2019-11-14] MEDS: IBUPROFEN 800 MG TAB PO PRN ×2 (10:15→17:58)
--- NOTE | 2019-11-14 10:30 | NUR ---
patient instructed to up and ambulate out of bed. call light within reach and instructed to call when pt is ready to be out fo bed.
--- NOTE | 2019-11-14 10:55 | NUR ---
TELE PSYCH CONSULT CALLED IN AND REPORT GIVEN ON THE PATIENT.
[2019-11-14 11:10] VITALS: BP 133/74
--- NOTE | 2019-11-14 11:50 | NUR ---
TELE PSYCH CONSULT DONE BY PSYCHIATRIST RIMA SAAVEDRA.
[2019-11-14] MEDS: FERROUS SULFATE 325 MG TAB PO SCH ×2 (12:06→17:44)
[2019-11-14] MEDS: SIMETHICONE 80 MG CHEWABLE TABLET PO SCH ×3 (12:06→21:03)
[2019-11-14] MEDS: ACETAMINOPHEN/CODEINE#3 (300/30mg) TAB PO PRN ×3 (12:06→20:10)
[2019-11-14 15:20] VITALS: BP 140/91
--- NOTE | 2019-11-14 16:30 | NUR ---
PT UP AND AMBULATED IN THE HALLWAY HOLDING THE CRIB, NO DISTRESS NOTED AT THIS TIME. Addendum: 11/14/19 at 1712 by Antoine Aponte RN ACCOMPANIED BY STAFF.
[2019-11-14 18:55] VITALS: BP 146/89
--- NOTE | 2019-11-14 20:40 | NUR ---
AMBULATION PT UP AND AMBULATED IN THE HALLWAY HOLDING THE CRIB, INFANT SWADDLED IN 2 BLANKETS HAT ON HEAD. AND THIS RN STANDBY ASSIST. NO DISTRESS TO INFANT AND MOB NOTED AT THIS TIME.
[2019-11-14 23:00] VITALS: BP 121/86
[2019-11-15 03:00] VITALS: BP 141/93
[2019-11-15] MEDS: IBUPROFEN 800 MG TAB PO PRN ×3 (03:01→20:32)
--- NOTE | 2019-11-15 03:30 | NUR ---
AMBULATION PT UP AND AMBULATED IN THE HALLWAY HOLDING THE CRIB, INFANT SWADDLED IN 2 BLANKETS HAT ON HEAD. THIS RN STANDBY ASSIST. NO DISTRESS TO AND MOB NOTED AT THIS TIME.
--- NOTE | 2019-11-15 03:49 | NUR ---
Patient active bowel sounds,passing gas no BM at this time
[2019-11-15] MEDS: VENLAFAXINE HCL 25MG TABLET PO SCH ×3 (05:43→21:58)
[2019-11-15 06:32] VITALS: BP 130/76
[2019-11-15] MEDS: ACETAMINOPHEN/CODEINE#3 (300/30mg) TAB PO PRN ×2 (08:26→17:46)
[2019-11-15] MEDS: SIMETHICONE 80 MG CHEWABLE TABLET PO SCH ×4 (09:58→21:40)
[2019-11-15] MEDS: FERROUS SULFATE 325 MG TAB PO SCH ×2 (09:58→17:45)
[2019-11-15] MEDS: DOCUSATE SOD 100 MG CAP PO SCH ×2 (09:58→21:40)
[2019-11-15 10:30] VITALS: BP 124/68
[2019-11-15 14:30] VITALS: BP 117/72
[2019-11-15 19:30] VITALS: BP 111/67
[2019-11-15 23:07] VITALS: BP 127/67
[2019-11-16] MEDS: ACETAMINOPHEN/CODEINE#3 (300/30mg) TAB PO PRN (01:31)
[2019-11-16] MEDS ORDERED: INFLUENZA QUAD 2019-2020 0.5ml SYRG IM ONE (04:30)
[2019-11-16] MEDS: SIMETHICONE 80 MG CHEWABLE TABLET PO SCH (05:37)
[2019-11-16] MEDS: VENLAFAXINE HCL 25MG TABLET PO SCH (05:45)
--- NOTE | 2019-11-16 05:45 | NUR ---
C/S Staple Removal DC Note: Alise Azevedo at bedside for staple removal. [place] removed using sterile technique. Lower abdominal incision approximated, no drainage/redness/inflammation visualized at time of removal. Steri-strips applied. Education provided on incisional care. Patient verbalized understanding and willingness to comply to instructions/teaching provided.
[2019-11-16 06:30] VITALS: BP 137/72
[2019-11-16] MEDS: FERROUS SULFATE 325 MG TAB PO SCH (08:00)
[2019-11-16] MEDS: DOCUSATE SOD 100 MG CAP PO SCH (10:00)
--- NOTE | 2019-11-16 10:30 | NUR ---
Discharge: Discharge instructions given as ordered. Pt encouraged to follow up with DIRECTOR HOME HEALTH and psychiatrist as instructed. All questions and concerns addressed. Patient verbalized understanding. Medication reconciliation completed and copy given to patient. All required/requested vaccines given and copies of vaccinations given to patient. Patient encouraged to prepare to depart unit.
--- NOTE | 2019-11-16 10:30 | NUR ---
Discharge: Discharge instructions given to mother of baby as ordered. Copies of and hearing screening, along with vaccination record given to mother. Mother encouraged to follow up with [facility] Operator of choice and to give envelope with infants information to mixed crop and livestock farmer at 1st office visit. All questions and concerns addressed. Mother of baby verbalized understanding and agreed to comply. Mother of baby encouraged to prepare for departure and notify RN ready to leave room for ID band removal/verification and car seat check.
[2019-11-16 11:15] VITALS: BP 124/74
--- NOTE | 2019-11-16 11:30 | NUR ---
Discharge: Patient taken to vehicle via ambulation with all personal belongings, accompanied by staff and family member. No distress noted at time of departure, no adverse changes in status since initial assessment.
== END 2019-11-16 11:30 | disposition home or self-care (01) | DRG 788 ==
LOC: LDRP 02:36 → OBSVTOIN 02:36 → LDRP 04:55
PROVIDERS: ADMIT Specialist; ATTEND Specialist
PROC: 10D00Z1 Extraction of Products of Conception, Low, Open Approach (ICD-10-PCS; principal; 2019-11-13 09:41)
DX: O62.2 Other uterine inertia (principal); O99.214 Obesity complicating childbirth; F41.9 Anxiety disorder, unspecified; E66.01 Morbid (severe) obesity due to excess calories; O99.344 Other mental disorders complicating childbirth; Z37.0 Single live birth; Z3A.37 37 weeks gestation of pregnancy; Z23 Encounter for immunization
CPT/HCPCS: 36415; 51702; 59025; 76815; 80053; 81001; 81002; 84112; 85025; 85610; 85730; 86592; 86850; 86900; 86901; 94760; 96361; 96365; 96366; 96372; 96374; 96375; G0378; J0131; J0330; J0690; J2250; J2405; J2590; J2704